=== PATIENT | female | born 1985 ===

== ENCOUNTER 2025-10-03 11:00 | Day surgery (SDC) | payer OTHER ==
[2025-09-30 08:35] VITALS: BP 123/75
[2025-09-30 08:52] LABS: BASO % 1.1 % (0.1-1.2); EOS # 0.30 (0.04-0.54); EOS % 5.7 % (0.7-7.0); LYMPH # 1.20 (1.18-3.74); LYMPH % 22.6 % (19.3-53.1); MEAN PLATELET VOLUME 11.00 fl (9.4-12.4); MONO # 0.74 (0.24-0.82); NEUT # 2.99 (1.56-6.13); NEUT % 56.4 % (34.0-71.1); RED CELL DISTRIBUTION WIDTH 13.2 % (11.6-14.4)
[2025-09-30 08:57] LABS: MONO % 14.0 % (4.7-12.5)
[2025-09-30 09:12] LABS: URINE APPEARANCE Clear; URINE BILIRRUBIN Negative (NEGATIVE); URINE BLOOD Small; URINE COLOR Dark Yellow; URINE GLUCOSE Negative (NEGATIVE); URINE KETONE Trace (NEGATIVE); URINE LEUKOCYTE Negative; URINE NITRATE Negative; URINE PROTEIN Trace (NEGATIVE); URINE UROBILINOGEN 1.0 E.U./dl
[2025-09-30 09:13] LABS: URINE EPITHELIAL CELLS 22.4 uL (0.0-38.8); URINE RBC 10.2 uL (0.0-20.8); URINE WBC 3.8 uL (0.0-23.2)
[2025-09-30 09:14] LABS: URINE CAST 1.17 uL (0.0-1.40)
[2025-09-30 09:27] LABS: INR 1.02
[2025-09-30 10:08] LABS: ALT/SGPT 22.0 U/L (12-78); AST/SGOT 13.0 U/L (15-37); BILIRUBIN TOTAL 0.74 mg/dL (0.3-1.2); BUN CREA RATIO 15.0 (7.0-25.0); CREATININE SERUM 0.82 mg/dL (0.55-1.02); GFR 78.02; GLOBULINA 3.0 G/DL (2.4-3.5); GLUCOSE FASTING 90.0 mg/dL (65-100); OSMOLALITY SERUM 284.0 MOSM/KG (275-295)
[~2025-10-03 11:00] MED LIST: CEFAZOLIN SODIUM 1,000 MG VIAL ONE; FOCALIN10 MG PO; LEXAPRO20 MG PO; WELLBUTRIN XL150 M1 PO
[2025-10-03] MEDS ORDERED: POVIDONE-IODINE 118 ML BOTT TOP ONE (13:06)
[2025-10-03] MEDS ORDERED: DIPHENHYDRAMINE HCL 50 MG/ML VIAL 1ML ONE (13:23)
[2025-10-03] MEDS ORDERED: SUGAMMADEX SODIUM 200 MG/2 ML VIAL IV ONE (14:37)
[2025-10-03] MEDS ORDERED: IBU600 MG PO (15:07)
[2025-10-03] MEDS ORDERED: DOXYCYCLINE HY100 M2 PO (15:07)
== END 2025-10-03 17:30 | disposition home or self-care (01) ==
LOC: CIR.AMB 11:00
PROVIDERS: ATTEND Obstetrics & Gynecology
DX: D25.0 Submucous leiomyoma of uterus (principal); N84.0 Polyp of corpus uteri